=== PATIENT | female | born 1970 | race Caucasian/White ===

== ENCOUNTER 2018-09-11 06:01 | Day surgery (SDC) | payer OTHER ==
[2018-09-09 16:48] LABS: BASOPHILS # (AUTO) 0.1 K/uL (0.00-0.22); BASOPHILS % (AUTO) 0.9 % (0.0-2.0); EOSINOPHILS # (AUTO) 0.1 K/uL (0-0.4); HEMATOCRIT 42.1 % (36-48); HEMOGLOBIN 14.2 g/dL (12.0-16.0); LYMPHOCYTES # (AUTO) 2.2 K/uL (2.5-16.5); LYMPHOCYTES % (AUTO) 32.4 % (20.5-51.1); MEAN CORPUSCULAR HEMOGLOBIN 31 pg (27-31); MEAN CORPUSCULAR HGB CONC 34 g/dL (33-37); MEAN CORPUSCULAR VOLUME 92.1 fL (80-94); MONOCYTES # (AUTO) 0.4 K/uL (0.8-1.0); MONOCYTES % (AUTO) 5.9 % (1.7-9.3); NEUTROPHILS % (AUTO) 58.8 % (42.2-75.2); PLATELET COUNT (AUTO) 314 K/uL (140-450); RED BLOOD CELL COUNT(AUTO) 4.57 MIL/uL (4.20-5.40); RED CELL DISTRIBUTION WIDTH 13.8 % (11.6-13.7); WHITE BLOOD COUNT (AUTO) 6.8 K/uL (4.8-10.8)
[2018-09-09 17:50] LABS: ANION GAP 8.8 (8-16); CARBON DIOXIDE 30.9 mmol/L (21-32); CREATININE 0.7 mg/dL (0.6-1.3); POTASSIUM 3.7 mmol/L (3.5-5.1); TOTAL BILIRUBIN 0.4 mg/dL (0.0-1.0)
[2018-09-09 17:51] LABS: ALBUMIN 3.8 g/dL (3.4-5.0)
[~2018-09-11] VITALS: Ht 154.9 cm; Wt 65.3 kg
[2018-09-11] MEDS ORDERED: CEFAZOLIN SODIUM 1 GM/D5W PM 50 ML IV SCH (07:20)
[2018-09-11] MEDS ORDERED: BUPIVACAINE-MPF/EPI 0.25% 30 ML VIAL INJ ONE (07:33)
[2018-09-11] MEDS ORDERED: KETOROLAC 30 MG/ML VIAL ONE (07:37)
[2018-09-11] MEDS ORDERED: SEVOFLURANE 250 ML BTL INH ONE (07:37)
[2018-09-11] MEDS ORDERED: DEXAMETHASONE 4 MG/ML VIAL ONE (07:37)
[2018-09-11] MEDS ORDERED: PROPOFOL 200 MG/20 ML VIAL IV ONE (07:37)
[2018-09-11] MEDS ORDERED: ONDANSETRON 4 MG/2 ML VIAL ONE (07:37)
[2018-09-11] MEDS ORDERED: fentaNYL 0.05 MG/ML VIAL ONE (07:41)
[2018-09-11] MEDS ORDERED: NACL 0.9% 1,000 ML IV SCH (08:28)
[2018-09-11] MEDS ORDERED: HYDROcodone/APAP 5/325 MG 1 TAB TAB PO PRN (08:30)
[2018-09-11] MEDS ORDERED: MORPHINE SULFATE 2 MG/ML SYR IVP PRN (08:30)
[2018-09-11] MEDS ORDERED: MORPHINE SULFATE 4 MG/ML SYR IV PRN (08:30)
[2018-09-11] MEDS ORDERED: ONDANSETRON 4 MG/2 ML VIAL IV PRN (08:30)
[2018-09-11] MEDS ORDERED: HYDROmorphone 1 MG/ML AMP IVP PRN (08:30)
== END 2018-09-11 09:45 | disposition home or self-care (01) ==
LOC: MDS 06:01 → MMU 06:01 → MDS 09:45
PROVIDERS: ATTEND Surgery
DX: L72.0 Epidermal cyst (principal); L72.3 Sebaceous cyst; Z88.1 Allergy status to other antibiotic agents; Z88.2 Allergy status to sulfonamides; Z79.2 Long term (current) use of antibiotics; Z98.890 Other specified postprocedural states; Z90.710 Acquired absence of both cervix and uterus
CPT/HCPCS: 11401; 11403; 36415; 71045; 80053; 81025; 85025; 87070; 87205; 88304; J0690; J1100; J1885; J2405; J2704; J3010; J3490; J7120; 87075

== ENCOUNTER 2019-09-06 15:19 | Outpatient (CLI) | payer OTHER | END 2019-09-06 16:09 | disposition home or self-care (01) | LOC: MLB 15:19 | PROVIDERS: ATTEND Preventive Medicine Preventive Medicine/Occupational Environmental Medicine | DX: R10.13 Epigastric pain (principal) | CPT/HCPCS: 36415; 86677 ==